=== PATIENT | female | born 1985 | race Caucasian/White ===

== ENCOUNTER → 2024-04-21 | Outpatient (CLI) | payer OTHER ==
[~2024-04-21] MED LIST: ATARAX10 MG PO; BCP TD; DOXYCYCLINE HY100 MG PO; FLAGYL500 MG PO; FLEXERIL10 MG PO; GABAPENTIN; HUMALOG100 U/ML SC; LEVOTHYROXINE PO; LORTAB 5/500 501 TAB PO; LORTAB 7.5/5001 TAB; LORTAB 7.5/5001 TAB PO; MIRENA52 MG IY; NAPROSYN500 MG PO; NEXIUM PO; PERCOCET 325 MG1 TA2 PO; PHENERGAN 25 TA25 MG PO; TETRACYCLINE; ZOFRAN ODT4 MG PO; [UNRECOGNIZED DRUG - OTHER] PO
== END ==
LOC: MC.RAD 08:28
DX: N63.11 Unspecified lump in the right breast, upper outer quadrant (principal); N64.89 Other specified disorders of breast